=== PATIENT | male | born 1965 | race Caucasian/White ===

== ENCOUNTER → 2024-05-14 16:16 | Outpatient (REF) | payer OTHER, SELFPAY | LOC: RAD 16:16 | PROVIDERS: ATTENDING PHYSICIAN Surgery Vascular Surgery; FAMILY PHYSICIAN Family Medicine | DX: I83.891 Varicose veins of right lower extremity with other complications (principal) | CPT/HCPCS: 93971 ==

== ENCOUNTER → 2024-05-15 15:24 | Outpatient (REF) | payer OTHER, SELFPAY | LOC: DHVS 15:24 | PROVIDERS: ATTENDING PHYSICIAN Surgery Vascular Surgery; FAMILY PHYSICIAN Family Medicine | DX: I83.891 Varicose veins of right lower extremity with other complications (principal) | CPT/HCPCS: 93971 ==